=== PATIENT | female | born 1975 | race Caucasian/White ===

== ENCOUNTER 2016-05-01 17:39 | Emergency (ER) | payer SELFPAY | END 2016-05-01 18:12 | disposition left against medical advice (07) | LOC: EME 17:39 | DX: R42 Dizziness and giddiness (principal); Z53.21 Procedure and treatment not carried out due to patient leaving prior to being seen by health care provider ==

== ENCOUNTER 2017-02-18 01:45 | Emergency (ER) | payer BC ==
[~2017-02-18] VITALS: Ht 157.5 cm; Wt 65.0 kg
[2017-02-18 03:06] LABS: EOSINOPHIL (%) 3.1 % (0-5); EOSINOPHIL COUNT 0.2 K/uL (0-0.3); HEMATOCRIT 39.7 % (36.0-46.0); IMMATURE GRANULOCYTE (%) 0.3 % (0.0-0.7); LYMPHOCYTE COUNT 1.9 K/uL (1.0-2.8); MCH 29.2 PG (29.0-34.0); MCHC 34.5 G/DL (30.0-36.0); MCV 84.6 FL (83-99); MEAN PLAT.VOLUME 9.2 uM^3 (9.5-12.4); MONOCYTE (%) 8.5 % (3-12); MONOCYTE COUNT 0.6 K/uL (0-0.8); NEUTROPHIL (%) 59.9 % (45-76); PLATELET COUNT 218 K/uL (156-360); RBC DIS.WIDTH-CV 12.4 % (11.8-14.6); RBC DIS.WIDTH-SD 37.8 % (39-53); RED BLOOD COUNT 4.69 M/uL (3.80-5.20); WHITE BLOOD COUNT 6.7 K/uL (4.1-10.2)
[2017-02-18 03:16] LABS: CHLORIDE 107 mEq/L (99-109); POTASSIUM 3.7 mEq/L (3.7-5.4); SODIUM 139 mEq/L (136-147)
[2017-02-18 03:19] LABS: GLUCOSE 97 mg/dL (70-99)
[2017-02-18 03:20] LABS: ANION GAP 7 MEQ/L (2-14)
[2017-02-18 03:21] LABS: TOTAL BILIRUBIN 0.3 mg/dL (0.0-1.0)
[2017-02-18 03:22] LABS: ALKALINE PHOSPHATASE 64 IU/L (3-129)
[2017-02-18 03:23] LABS: GFR ESTIMATE (CALCULATED) > 59 mL/min/
[2017-02-18 03:24] LABS: UREA NITROGEN (BUN) 9 mg/dL (9-23)
[2017-02-18 03:32] LABS: TROP-I INTERPRETATION NEGATIVE; TROPONIN-I < 0.01 ng/mL (0.0-0.30)
[2017-02-18 03:33] LABS: QUANTITATIVE HCG < 4.0 MIU/ML
[2017-02-18 04:45] VITALS: BP 132/78
== END 2017-02-18 04:46 | disposition home or self-care (01) ==
LOC: EME 01:45 → EDBD 01:45 → EME 01:45
PROVIDERS: Emergency Medicine
DX: R00.2 Palpitations (principal); R42 Dizziness and giddiness
CPT/HCPCS: 71010; 80053; 83735; 84484; 84702; 85025; 93005; 99281; 99285